=== PATIENT | female | born 1990 | race African-American/Black ===

== ENCOUNTER 2019-01-19 15:53 | Emergency (ER) | payer OTHER ==
[~2019-01-19] VITALS: Ht 167.6 cm; Wt 68.0 kg
[2019-01-19 15:57] VITALS: BP 144/62
== END 2019-01-19 16:34 | disposition home or self-care (01) ==
LOC: ER 15:53
DX: F41.9 Anxiety disorder, unspecified (principal); F31.9 Bipolar disorder, unspecified; Z88.0 Allergy status to penicillin
CPT/HCPCS: 99284

== ENCOUNTER 2025-06-04 05:12 | Emergency (ER) | payer BC, OTHER ==
[~2025-06-04] VITALS: Ht 167.6 cm; Wt 65.0 kg
[2025-06-04 06:35] LABS: BASOPHILS % 0.7 % (0.0-2.0); EOSINOPHILS % 0.8 % (0.0-5.0); HEMATOCRIT. 39.2 % (36.0-48.0); HEMOGLOBIN. 13.2 g/dL (12.0-16.0); LYMPHOCYTES % 25.9 % (20.0-50.0); MEAN PLATELET VOLUME 9.4 fl (7.4-10.4); MONOCYTES % 8.8 % (2.0-8.0); NEUTROPHILS % 63.8 % (40.0-76.0); PLATELET 213 x1000/uL (130-400); RED BLOOD CELL COUNT 4.16 mill/uL (4.2-5.4); RED CELL DISTRIBUTION WIDTH 12.6 % (11.6-14.6)
[2025-06-04 06:49] LABS: CREATININE 0.9 mg/dL (0.6-1.0); ETHANOL BLOOD < 10 mg/dL (<10); UREA NITROGEN BLOOD 9 mg/dL (9-23)
[2025-06-04] MEDS: HALOPERIDOL LACTATE 5MG/ML VIAL IM ONE (06:58)
[2025-06-04 07:02] LABS: HCG SCREEN NEGATIVE
[2025-06-04 07:36] VITALS: O2SAT 96
[2025-06-04] MEDS: MIDAZOLAM HCL 2 MG/2 ML VIAL IM ONE (07:36)
[2025-06-04] MEDS ORDERED: POTASSIUM CHLORIDE 20MEQ/PACKET PO ONE (09:30)
[2025-06-04 10:00] LABS: CLARITY URINE CLEAR (CLEAR); COLOR URINE YELLOW (YELLOW); GLUCOSE URINE NEGATIVE (NEGATIVE); KETONES URINE NEGATIVE (NEGATIVE); LEUKOCYTE ESTERASE URINE TRACE (NEGATIVE); NITRITE URINE NEGATIVE (NEGATIVE); OCCULT BLOOD URINE NEGATIVE (NEGATIVE); PH URINE 7.0 (4.5-8.0); PROTEIN URINE NEGATIVE (NEGATIVE); SPECIFIC GRAVITY URINE 1.009 (1.005-1.030); UROBILINOGEN URINE 0.2 E.U./dL (0.2-1.0)
[2025-06-04 10:12] LABS: BACTERIA URINE 2+; RBC URINE 0-2 /hpf (0-2); SQUAMOUS EPITHELIAL CELL URINE 2+ /lpf (RARE/1+); YEAST URINE NONE SEEN
[2025-06-04 10:26] LABS: *AMPHETAMINES SCREEN URINE NEGATIVE (NEGATIVE); *BARBITURATES SCREEN URINE NEGATIVE (NEGATIVE); *BENZODIAZEPINES SCREEN URINE PRESUMPTIVE POSITIVE (NEGATIVE); *COCAINE SCREEN URINE NEGATIVE (NEGATIVE); CANNABINOID URINE SCREEN NEGATIVE (NEGATIVE); ECSTASY MDMA SCREEN URINE NEGATIVE (NEGATIVE); METHADONE URINE SCREEN NEGATIVE (NEGATIVE); OPIATES URINE SCREEN NEGATIVE (NEGATIVE); PHENCYCLIDINE URINE SCREEN NEGATIVE (NEGATIVE)
[2025-06-04] MEDS: OLANZAPINE 5MG TABLET ODT PO SCH (11:00)
[2025-06-04] MEDS: POTASSIUM CHLORIDE 20MEQ/PACKET PO NR (11:00)
[2025-06-04 15:52] VITALS: BP 127/70; PULSE 85; RESP 18; TEMP 36.7; O2SAT 99
== END 2025-06-04 16:15 ==
LOC: ER 05:12
DX: R45.1 Restlessness and agitation (principal); F20.9 Schizophrenia, unspecified; F31.9 Bipolar disorder, unspecified; Z88.0 Allergy status to penicillin; E87.6 Hypokalemia; Z79.899 Other long term (current) drug therapy
CPT/HCPCS: 80305; 80048; 81003; 80307; 80329; 80320; 84703; 85025; 36415; 93005; 96372; 99291; 87426; J1630; J2250; G0480